=== PATIENT | female | born 1930 | race Caucasian/White ===

== ENCOUNTER 2018-04-30 14:37 | Inpatient (IN) | payer MEDICARE, OTHER ==
[2018-04-30 17:25] LABS: ADD MAN DIFF? NO
[2018-04-30 17:31] LABS: BASOPHIL # 0.1 10^3/ul (0.0-0.1); BASOPHILS % 0.9 % (0.0-2.0); EOSINOPHILS # 0.2 10^3/ul (0.0-0.5); EOSINOPHILS % 3.2 % (0.0-7.0); HEMATOCRIT 36.3 % (37.0-47.0); HEMOGLOBIN 11.6 g/dl (12.0-16.0); LYMPHOCYTES % 15.5 % (15.0-51.0); MEAN CORPUSCULAR HEMOGLOBIN 32.1 pg (29.0-33.0); MEAN CORPUSCULAR VOLUME 100.6 fl (82.0-101.0); MEAN PLATELET VOLUME 11.6 fl (7.4-10.4); MONOCYTE # 0.9 10^3/ul (0.3-0.9); MONOCYTES % 13.2 % (0.0-11.0); NEUTROPHIL # 4.4 10^3/ul (1.6-7.5); NEUTROPHILS % 66.1 % (39.0-77.0); PLATELET COUNT 262 10^3/UL (140-415); RED BLOOD COUNT 3.61 10^6/ul (4.20-5.40); RED CELL DISTRIBUTION WIDTH 13.8 % (11.5-14.5)
[2018-04-30 17:31] LABS: WHITE BLOOD COUNT 6.7 10^3/ul (4.8-10.8)
[2018-04-30 17:49] LABS: ANION GAP 7 (5-13); BLOOD UREA NITROGEN 43 mg/dl (7-20); CALCIUM 8.9 mg/dl (8.4-10.2); CARBON DIOXIDE 24 mmol/L (21-31); CHLORIDE 107 mmol/L (97-110); CREATININE 2.32 mg/dl (0.44-1.00); GLUCOSE 111 mg/dl (70-220); POTASSIUM 5.2 mmol/L (3.5-5.1); SODIUM 138 mmol/L (135-144)
[2018-04-30] MEDS: SOD CHLORIDE 0.9% 500 ML IV (18:39)
[2018-04-30] MEDS ORDERED: ONDANSETRON 4 MG INJ IV (20:30)
[2018-04-30] MEDS ORDERED: HYDROCODONE/APAP (5/325) TAB PO (21:00)
[2018-04-30] MEDS: AMIODARONE 200 MG TAB PO (22:00)
[2018-05-01] MEDS: PANTOPRAZOLE (EC) 40 MG TAB PO (06:27)
[2018-05-01] MEDS: AMIODARONE 200 MG TAB PO ×2 (08:36→21:00)
[2018-05-01] MEDS: ATORVASTATIN 10 MG TAB PO (08:36)
[2018-05-01] MEDS: FUROSEMIDE 20 MG TAB PO (08:36)
[2018-05-01] MEDS ORDERED: ENALAPRIL 2.5 MG TAB PO (09:00)
[2018-05-01] MEDS: SOD CHLORIDE 0.9% 1,000 ML IV (14:02)
[2018-05-01 14:51] LABS: ANION GAP 10 (5-13); BLOOD UREA NITROGEN 35 mg/dl (7-20); CALCIUM 8.9 mg/dl (8.4-10.2); CARBON DIOXIDE 24 mmol/L (21-31); CHLORIDE 107 mmol/L (97-110); CREATININE 1.93 mg/dl (0.44-1.00); GLUCOSE 131 mg/dl (70-220); POTASSIUM 4.6 mmol/L (3.5-5.1); SODIUM 141 mmol/L (135-144)
[2018-05-01] MEDS: ENOXAPARIN 30 MG/0.3 ML SYG SC (15:39)
[2018-05-01 17:51] LABS: ADD UMIC NO; UR ASCORBIC ACID NEGATIVE (NEGATIVE); UR BACTERIA FEW /HPF (NONE SEEN); UR BILIRUBIN (Dip) NEGATIVE (NEGATIVE); UR BLOOD (Dip) NEGATIVE (NEGATIVE); UR CLARITY SLIGHTLY CLOUDY (CLEAR); UR COLOR STRAW (YELLOW); UR GLUCOSE (Dip) NEGATIVE (NEGATIVE); UR KETONES (Dip) NEGATIVE (NEGATIVE); UR LEUKOCYTE ESTERASE (Dip) NEGATIVE Leu/ul (NEGATIVE); UR MUCUS FEW /HPF (NONE SEEN); UR NITRITE (Dip) NEGATIVE (NEGATIVE); UR RBC 0 /HPF (0-5); UR SPECIFIC GRAVITY (Dip) 1.008 (1.003-1.030); UR SQUAMOUS EPITHELIAL CELL FEW /HPF (FEW); UR TOTAL PROTEIN (Dip) NEGATIVE (NEGATIVE); UR UROBILINOGEN (Dip) NEGATIVE (NEGATIVE); UR WBC 0 /HPF (0-5)
[2018-05-01 18:22] LABS: SODIUM,URINE RANDOM 87 mmol/L (30-90)
[2018-05-02 05:47] LABS: ANION GAP 6 (5-13); BLOOD UREA NITROGEN 29 mg/dl (7-20); CALCIUM 8.8 mg/dl (8.4-10.2); CARBON DIOXIDE 26 mmol/L (21-31); CHLORIDE 110 mmol/L (97-110); CREATININE 1.69 mg/dl (0.44-1.00); GLUCOSE 93 mg/dl (70-220); POTASSIUM 4.5 mmol/L (3.5-5.1); SODIUM 142 mmol/L (135-144)
[2018-05-02] MEDS: PANTOPRAZOLE (EC) 40 MG TAB PO (06:10)
[2018-05-02] MEDS: ATORVASTATIN 10 MG TAB PO (08:57)
[2018-05-02] MEDS: AMIODARONE 200 MG TAB PO ×2 (08:58→20:24)
[2018-05-02] MEDS: ENOXAPARIN 30 MG/0.3 ML SYG SC (09:00)
[2018-05-02] MEDS: SOD CHLORIDE 0.9% 1,000 ML IV (16:47)
[2018-05-02] MEDS: CALCIUM/VITAMIN D (500/200) TAB PO (20:24)
[2018-05-03] MEDS: PANTOPRAZOLE (EC) 40 MG TAB PO (06:30)
[2018-05-03 08:20] LABS: ANION GAP 3 (5-13); BLOOD UREA NITROGEN 20 mg/dl (7-20); CALCIUM 8.8 mg/dl (8.4-10.2); CARBON DIOXIDE 27 mmol/L (21-31); CHLORIDE 111 mmol/L (97-110); CREATININE 1.48 mg/dl (0.44-1.00); GLUCOSE 93 mg/dl (70-220); POTASSIUM 4.3 mmol/L (3.5-5.1); SODIUM 141 mmol/L (135-144)
[2018-05-03] MEDS: AMIODARONE 200 MG TAB PO (09:00)
[2018-05-03] MEDS: CALCIUM/VITAMIN D (500/200) TAB PO ×2 (09:24→20:20)
[2018-05-03] MEDS: ATORVASTATIN 10 MG TAB PO (09:29)
[2018-05-03] MEDS: ENOXAPARIN 30 MG/0.3 ML SYG SC (09:33)
[2018-05-03] MEDS: AMLODIPINE 10 MG TAB PO (11:30)
[2018-05-03] MEDS ORDERED: NIFEdipine (XL) 30 MG TAB PO (12:00)
[2018-05-03] MEDS: SOD CHLORIDE 0.9% 1,000 ML IV (13:45)
[2018-05-03] MEDS ORDERED: BETAMET NA PHOS/AC(6 MG/ML) 5ML INJ INJ (18:30)
[2018-05-03] MEDS ORDERED: BUPIVACAINE 0.5%/EPI (SDV) 30 ML INJ INJ (18:30)
[2018-05-03] MEDS: APIXABAN 5 MG TABLET PO (20:22)
[2018-05-04] MEDS: PANTOPRAZOLE (EC) 40 MG TAB PO (05:39)
[2018-05-04 06:47] LABS: CREATINE KINASE 40 IU/L (23-200)
[2018-05-04 06:57] LABS: CK-MB 0.98 ng/ml (0.0-2.4); TROPONIN-I < 0.012 ng/ml (0.000-0.120)
[2018-05-04] MEDS: AMIODARONE 200 MG TAB PO (09:00)
[2018-05-04] MEDS: APIXABAN 5 MG TABLET PO (09:23)
[2018-05-04] MEDS: ATORVASTATIN 10 MG TAB PO (09:24)
[2018-05-04] MEDS: CALCIUM/VITAMIN D (500/200) TAB PO (09:25)
[2018-05-04] MEDS: AMLODIPINE 10 MG TAB PO (09:25)
[2018-05-04] MEDS ORDERED: NALOXONE (0.4 MG/ML) INJ IV (13:00)
== END 2018-05-04 13:35 | disposition home or self-care (01) | DRG 543 ==
LOC: E/R 14:37 → 2NE 18:17
DX: M48.56XA Collapsed vertebra, not elsewhere classified, lumbar region, initial encounter for fracture (principal); N17.9 Acute kidney failure, unspecified; M51.26 Other intervertebral disc displacement, lumbar region; Z91.81 History of falling; M70.61 Trochanteric bursitis, right hip; M48.061 Spinal stenosis, lumbar region without neurogenic claudication; E87.5 Hyperkalemia; N18.9 Chronic kidney disease, unspecified; R00.1 Bradycardia, unspecified
CPT/HCPCS: 80048; 81001; 81003; 82550; 82553; 84300; 84484; 85025; 93306; 99285-25